=== PATIENT | male | born 1955 | race Caucasian/White ===

== ENCOUNTER → 2020-05-25 21:28 | Outpatient (CLI) | payer OTHER, SELFPAY ==
[2020-05-10 17:23] VITALS: BMI 25.9
[2020-05-25 22:04] LABS: Thyroid Stim Hormone (TSH) < 0.01 uIU/mL (0.358-3.74)
== END ==
PROVIDERS: Visit Provider Nurse Practitioner
DX: E03.9 Hypothyroidism, unspecified (principal)
CPT/HCPCS: 84443